=== PATIENT | female | born 1970 | race Caucasian/White ===

== ENCOUNTER 2018-03-23 17:24 | Emergency (ER) | payer MEDICAID ==
[2018-03-23] MEDS ORDERED: Sodium Chloride 0.9% 2.5 ML Syringe FLUSH PRN (17:46)
[2018-03-23] MEDS ORDERED: Sodium Chloride 0.9% 10 ML Syringe FLUSH PRN (17:46)
--- NOTE | 2018-03-23 17:50 | EDM.PDOC ---
ED HPI GENERAL MEDICAL PROBLEM - General Chief Complaint: Skin Complaint Stated Complaint: ABCESS IN LEFT BREAST Time Seen by Provider: 03/23/18 17:27 Source of Information: Reports: Patient History Limitations: Reports: No Limitations - History of Present Illness INITIAL COMMENTS - FREE TEXT/NARRATIVE: History of present illness: []Patient states she needs her breast opened due to an abscess. Patient is from [place] and has had an eight-month history of recurrent fluid in her left breast that has been drained 3 times. She has never had a mammogram and has never seen a surgeon for this problem. She denies having any fevers or chills. Review of systems: As per history of present illness and below otherwise all systems reviewed and negative. Past medical history: As per history of present illness and as reviewed below otherwise noncontributory. Surgical history: As per history of present illness and as reviewed below otherwise noncontributory. Social history: No reported history of drug or alcohol abuse. Family history: As per history of present illness and as reviewed below otherwise noncontributory. Physical exam: General: Well developed, well nourished in NAD HEENT: Atraumatic, normocephalic, pupils reactive, negative for conjunctival pallor or scleral icterus, mucous membranes moist, throat clear, neck supple, nontender, trachea midline. Lungs: Clear to auscultation, breath sounds equal bilaterally, chest nontender. Left breast with 4 cm x 4 cm irregular firm mass with a small area of palpable fluctuance is no erythema on the skin or skin lesions. Heart: S1S2, regular, negative for clicks, rubs, or JVD. Abdomen: Soft, nondistended, nontender. Negative for masses or hepatosplenomegaly. Negative for costovertebral tenderness. Pelvis: Stable nontender. Genitourinary: Deferred. Rectal: Deferred. Extremities: Atraumatic, negative for cords or calf pain. Neurovascular unremarkable. Neuro: Awake, alert, oriented. Cranial nerves II through XII unremarkable. Cerebellum unremarkable. Motor and sensory unremarkable throughout. Exam nonfocal. Diagnostics: []CBC-white count 15,000 , breast ultrasound- , blood cultures also obtained Therapeutics: [] Impression: []Recurrent complex breast abscess Plan: []Clindamycin, follow up with general surgery Definitive disposition and diagnosis as appropriate pending reevaluation and review of above. Vitals is refusing - Related Data Allergies Allergy/AdvReac Type Severity Reaction Status Date / Time cephalexin [From Keflex] Allergy Hives Verified 03/23/18 17:41 Penicillins Allergy Hives Verified 03/23/18 17:41 sulfamethoxazole Allergy Hives Verified 03/23/18 17:41 [From Bactrim] trimethoprim [From Bactrim] Allergy Hives Verified 03/23/18 17:41 vancomycin Allergy Hives Verified 03/23/18 17:41 unknown antibiotic Allergy Hives Uncoded 03/23/18 17:41 Home Meds: Home Meds Clindamycin HCl 300 mg PO TID #30 capsule 03/23/18 [Rx] Past Medical History Dermatologic History: Reports: Other (See Below) Other Dermatologic History: MRSA Social & Family History - Tobacco Use Smoking Status *Q: Current Every Day Smoker Years of Tobacco use: 35 Packs/Tins Daily: 1 ED ROS GENERAL - Review of Systems Review Of Systems: See Below (See history of present illness) ED EXAM, SKIN/RASH Exam: See Below (See history of present illness) Course - Vital Signs Last Recorded V/S: Last Vital Signs Temp 97.7 F 03/23/18 17:44 Pulse 79 03/23/18 17:44 Resp 18 03/23/18 17:44 BP 125/87 03/23/18 17:44 Pulse Ox 96 03/23/18 17:44 - Orders/Labs/Meds Orders: Active Orders 24 hr Category Date Time Status Breast Limited Lt [US] Stat Exams 03/23/18 17:46 Taken CULTURE BLOOD [BC] Stat Lab 03/23/18 18:00 Received CULTURE BLOOD [BC] Stat Lab 03/23/18 18:08 Received Sodium Chloride 0.9% [Saline Flush] Med 03/23/18 17:46 Active 10 ml FLUSH ASDIRECTED PRN Sodium Chloride 0.9% [Saline Flush] Med 03/23/18 17:46 Active 2.5 ml FLUSH ASDIRECTED PRN Blood Culture x2 Reflex Set [OM.PC] Stat Oth 03/23/18 17:50 Ordered Saline Lock Insert [OM.PC] Stat Oth 03/23/18 17:45 Ordered Medication Orders Sodium Chloride (Saline Flush) 10 ml FLUSH ASDIRECTED PRN PRN Reason: Keep Vein Open Sodium Chloride (Saline Flush) 2.5 ml FLUSH ASDIRECTED PRN PRN Reason: Keep Vein Open Labs: Laboratory Tests 03/23/18 Range/Units 18:00 WBC 15.71 H (4.0-11.0) K/uL RBC 5.39 (4.30-5.90) M/uL Hgb 15.8 (12.0-16.0) g/dL Hct 47.1 H (36.0-46.0) % MCV 87.4 (80.0-98.0) fL MCH 29.3 (27.0-32.0) pg MCHC 33.5 (31.0-37.0) g/dL RDW Std Deviation 43.0 (28.0-62.0) fl RDW Coeff of Adilson 14 (11.0-15.0) % Plt Count 256 (150-400) K/uL MPV 10.90 (7.40-12.00) fL Neut % (Auto) 71.6 (48.0-80.0) % Lymph % (Auto) 20.6 (16.0-40.0) % [place] % (Auto) 6.9 (0.0-15.0) % Eos % (Auto) 0.6 (0.0-7.0) % Baso % (Auto) 0.3 (0.0-1.5) % Neut # (Auto) 11.3 H (1.4-5.7) K/uL Lymph # (Auto) 3.2 H (0.6-2.4) K/uL [place] # (Auto) 1.1 H (0.0-0.8) K/uL Eos # (Auto) 0.1 (0.0-0.7) K/uL Baso # (Auto) 0.1 (0.0-0.1) K/uL Meds: Medications Generic Name Dose Route Start Last Admin Trade Name Freq PRN Reason Stop Dose Admin Sodium Chloride 10 ml 03/23/18 17:46 Saline Flush FLUSH ASDIRECTED PRN Keep Vein Open Sodium Chloride 2.5 ml 03/23/18 17:46 Saline Flush FLUSH ASDIRECTED PRN Keep Vein Open Departure - Departure Time of Disposition: 18:46 Disposition: Home, Self-Care 01 Condition: Good Clinical Impression: Breast abscess of female - Discharge Information Prescriptions: Clindamycin HCl 300 mg PO TID #30 capsule Referrals: PCP,None [Primary Care Provider] - Forms: ED Department Discharge Additional Instructions: The following information is given to patients seen in the emergency department who are being discharged to home. This information is to outline your options for follow-up care. We provide all patients seen in our emergency department with a follow-up referral. The need for follow-up, as well as the timing and circumstances, are variable depending upon the specifics of your emergency department visit. If you don't have a primary care physician on staff, we will provide you with a referral. We always advise you to contact your personal physician following an emergency department visit to inform them of the circumstance of the visit and for follow-up with them and/or the need for any referrals to a consulting specialist. The emergency department will also refer you to a specialist when appropriate. This referral assures that you have the opportunity for follow-up care with a specialist. All of these measure are taken in an effort to provide you with optimal care, which includes your follow-up. Under all circumstances we always encourage you to contact your private physician who remains a resource for coordinating your care. When calling for follow-up care, please make the office aware that this follow-up is from your recent emergency room visit. If for any reason you are refused follow-up, please contact the [facility] Emergency Department at and asked to speak to the emergency department charge nurse. Clindamycin as directed, warm soaks call Gen. surgery tomorrow for follow-up [facility] Professional Building [address] [place] [address], [address] [place] [address] - My Orders Last 24 Hours: My Active Orders 03/23/18 17:45 Saline Lock Insert [OM.PC] Stat 03/23/18 17:46 Breast Limited Lt [US] Stat Sodium Chloride 0.9% [Saline Flush] 10 ml FLUSH ASDIRECTED PRN Sodium Chloride 0.9% [Saline Flush] 2.5 ml FLUSH ASDIRECTED PRN 03/23/18 17:50 Blood Culture x2 Reflex Set [OM.PC] Stat 03/23/18 18:00 CULTURE BLOOD [BC] Stat 03/23/18 18:08 CULTURE BLOOD [BC] Stat - Assessment/Plan Last 24 Hours: My Active Orders 03/23/18 17:45 Saline Lock Insert [OM.PC] Stat 03/23/18 17:46 Breast Limited Lt [US] Stat Sodium Chloride 0.9% [Saline Flush] 10 ml FLUSH ASDIRECTED PRN Sodium Chloride 0.9% [Saline Flush] 2.5 ml FLUSH ASDIRECTED PRN 03/23/18 17:50 Blood Culture x2 Reflex Set [OM.PC] Stat 03/23/18 18:00 CULTURE BLOOD [BC] Stat 03/23/18 18:08 CULTURE BLOOD [BC] Stat
--- NOTE | 2018-03-24 09:43 | US ---
EXAM DATE: 03/23/18 PATIENT'S AGE: 47 Patient: ROXANNE RAMSEY Facility: [place], [place] Site . Site : [id number] Study: US Breast [id number] 6:45:07 PM Ordering Physician: Josh Whitaker Final Report: HISTORY: Mass/ fluctuance of the left breast. Evaluate for abscess vs mass. COMPARISON: None. FINDINGS: Ultrasound of left breast at 9 o`clock 3 cm from the nipple shows a complex fluid collection measuring 5.6 x 2.6 x 3.5 cm. There is associated skin thickening. IMPRESSION: Complex fluid collection left breast 9 o`clock 3 cm. Breast surgical consultation is recommended. Discussed with Dr. Moreno. Clinically, this is recurrent problem nd has been previously aspirated without resolution. Therefore core needle biopsy is recommended to exclude a mass or an atypical chronic infectious/inflammatory process. Dictated by Elizabeth Harper MD @ Mar 23 2018 7:09PM (Electronic Signature) Report Signed by Proxy. LUIS
== END 2018-03-23 19:15 | disposition home or self-care (01) ==
LOC: MW.ED 17:24
DX: N61.1 Abscess of the breast and nipple (principal); F17.210 Nicotine dependence, cigarettes, uncomplicated; Z88.0 Allergy status to penicillin; Z88.2 Allergy status to sulfonamides; Z88.1 Allergy status to other antibiotic agents
CPT/HCPCS: 76642-LT; 76642-LT-26; 85025; 87040; 99283; 99284-25